=== PATIENT | female | born 1995 | race Caucasian/White ===

== ENCOUNTER 2023-03-06 09:06 | Outpatient (CLI) | payer OTHER, SELFPAY | END 2023-03-06 09:07 | disposition home or self-care (01) | PROVIDERS: Visit Provider Obstetrics & Gynecology | DX: Z01.419 Encounter for gynecological examination (general) (routine) without abnormal findings (principal); N92.6 Irregular menstruation, unspecified; Z13.6 Encounter for screening for cardiovascular disorders; Z13.1 Encounter for screening for diabetes mellitus; Z12.4 Encounter for screening for malignant neoplasm of cervix | CPT/HCPCS: 80061; 83001; 83498; 84270; 84402; 84403; 84443 ==